=== PATIENT | female | born 1965 | race Caucasian/White ===

== ENCOUNTER → 2016-07-08 | Outpatient (CLI) | payer BC ==
--- NOTE | 2016-07-08 16:18 | REPMRS ---
Patient History The patient states she had a clinical breast exam in 07/2016. Family history of colorectal cancer in maternal grandmother at age 50 or over and breast cancer in paternal grandmother at age 50 or over. Digital Woman Screen Mammo: July 08, 2016 - Exam #: [id number] Bilateral CC and MLO view(s) were taken. Technologist: Andreia Yeboah Technologist Prior study comparison: July 10, 2015, digital woman screen mammo performed at [facility] to [facility]. July 10, 2014, digital woman screen mammo performed at [facility] to [facility]. FINDINGS: There are scattered fibroglandular densities. There has been no change in the appearance of the mammogram from the prior studies. There is a mild amount of residual fibroglandular tissue which is fairly symmetric. There is no interval development of dominant mass, architectural distortion, or clustered microcalcification suggestive of malignancy. ASSESSMENT: BI-RADS/ACR category 1 mammogram. Negative. Recommendation Routine screening mammogram in 1 year (for women over age 40). This mammogram was interpreted with the aid of an FDA-approved computer-aided dectection system. Electronically Signed By: Erick Chang MD 07/08/16 [id number]
== END ==
LOC: M WHC 15:08
PROVIDERS: ATTEND Nurse Practitioner Family
DX: Z12.31 Encounter for screening mammogram for malignant neoplasm of breast (principal); Z80.3 Family history of malignant neoplasm of breast

== ENCOUNTER → 2016-07-08 | Outpatient (REF) | payer BC | LOC: M SFHCWAGY 15:44 | PROVIDERS: ATTEND Nurse Practitioner Family | DX: Z12.4 Encounter for screening for malignant neoplasm of cervix (principal) ==

== ENCOUNTER → 2017-02-23 | Outpatient (CLI) | payer BC ==
[2017-02-23 13:31] LABS: MEAN CORPUSCULAR HEMOGLOBIN 30.9 pg (27.0-33.0); MEAN CORPUSCULAR HGB CONC 33.9 g/dl (32.0-36.5); MEAN CORPUSCULAR VOLUME 91.2 fl (80.0-96.0); RED CELL DISTRIBUTION WIDTH 11.8 % (11.5-14.5); WHITE BLOOD COUNT 5.2 K/mm3 (4.0-10.0)
[2017-02-23 13:38] LABS: VITAMIN B12 LEVEL 395 PG/ML
[2017-02-23 13:39] LABS: FOLATE 13.7 NG/ML
[2017-02-23 13:48] LABS: ALBUMIN 3.9 GM/DL (3.2-5.2); ALKALINE PHOSPHATASE 89 U/L (45-117); ALT/SGPT 17 U/L (12-78); ANION GAP 7 MEQ/L (8-16); AST/SGOT 13 U/L (15-37); BILIRUBIN,TOTAL 0.4 MG/DL (0.2-1.0); BLOOD UREA NITROGEN 10 MG/DL (7-18); CALCIUM LEVEL 9.2 MG/DL (8.5-10.1); CARBON DIOXIDE LEVEL 27 MEQ/L (21-32); CHLORIDE LEVEL 105 MEQ/L (98-107); CHOLESTEROL LEVEL 206 MG/DL (<200); CREATININE FOR GFR 0.83 MG/DL (0.55-1.02); GLOMERULAR FILTRATION RATE > 60.0 (>51); GLUCOSE, FASTING 85 MG/DL (70-105); POTASSIUM SERUM 4.5 MEQ/L (3.5-5.1); SODIUM LEVEL 139 MEQ/L (136-145); TOTAL PROTEIN 7.8 GM/DL (6.4-8.2); TRIGLYCERIDES LEVEL 95 MG/DL (<150)
== END ==
LOC: M SMT 08:15
PROVIDERS: ATTEND Nurse Practitioner Family
DX: Z13.0 Encounter for screening for diseases of the blood and blood-forming organs and certain disorders involving the immune mechanism (principal); Z13.1 Encounter for screening for diabetes mellitus; E66.09 Other obesity due to excess calories; E55.9 Vitamin D deficiency, unspecified; Z13.220 Encounter for screening for lipoid disorders

== ENCOUNTER → 2017-03-20 | Outpatient (CLI) | payer BC | LOC: M SMT 11:14 | PROVIDERS: ATTEND Advanced Practice Midwife | DX: N76.0 Acute vaginitis (principal) ==

== ENCOUNTER → 2017-07-04 | Outpatient (REF) | payer BC | LOC: M LAB REF 18:54 | DX: J02.9 Acute pharyngitis, unspecified (principal) | CPT/HCPCS: 87081 ==

== ENCOUNTER → 2017-07-10 | Outpatient (CLI) | payer BC | LOC: M WHC 15:11 | DX: Z12.31 Encounter for screening mammogram for malignant neoplasm of breast (principal) | CPT/HCPCS: 77067 ==

== ENCOUNTER 2017-10-11 08:46 | Outpatient (RCR) | payer BC | END 2017-10-30 | LOC: M OT 10-18 09:01 | DX: M77.8 Other enthesopathies, not elsewhere classified (principal) | CPT/HCPCS: 97110 ==

== ENCOUNTER → 2017-10-26 | Outpatient (CLI) | payer BC | LOC: M CARPUL 09:08 | DX: R06.02 Shortness of breath (principal) | CPT/HCPCS: 71046 ==

== ENCOUNTER 2017-11-01 09:04 | Outpatient (RCR) | payer BC | END 2017-11-30 | LOC: M OT 09:04 | DX: Z51.89 Encounter for other specified aftercare (principal); M77.8 Other enthesopathies, not elsewhere classified | CPT/HCPCS: 97110 ==

== ENCOUNTER → 2018-07-11 | Outpatient (CLI) | payer BC ==
--- NOTE | 2018-07-11 16:54 | REPMRS ---
Patient History The patient states she had a clinical breast exam in 07/2018. Family history of colorectal cancer at age 50 or over in maternal grandmother, breast cancer at age 50 or over in paternal grandmother. Took unspecified hormones for 6 months. Digital Woman Screen Mammo: July 11, 2018 - Exam #: [id number] Bilateral CC and MLO view(s) were taken. Technologist: Marianne Valerio, Technologist Prior study comparison: July 10, 2017, digital woman screen mammo performed at [facility]. July 08, 2016, digital woman screen mammo performed at [facility]. July 10, 2015, digital woman screen mammo performed at [facility]. FINDINGS: There are scattered fibroglandular densities. There has been no change in the appearance of the mammogram from the prior studies. There is a mild amount of scattered fibroglandular density which is fairly symmetric. There is no interval development of dominant mass, architectural distortion, or clustered microcalcification suggestive of malignancy. 3-D tomosynthesis shows no additional findings. Assessment: BI-RADS/ACR category 1 mammogram. Negative. Recommendation Routine screening mammogram of both breasts in 1 year (for women over age 40). This patient's Lifetime Breast Cancer RIsk is estimated at 18.9 %. This mammogram was interpreted with the aid of an FDA-approved computer-aided dectection system. Electronically Signed By: Dangelo Valadez MD 07/11/18 [id number]
== END ==
LOC: M WHC 15:09
PROVIDERS: ATTEND Nurse Practitioner Family
DX: Z12.31 Encounter for screening mammogram for malignant neoplasm of breast (principal); Z92.29 Personal history of other drug therapy; Z80.0 Family history of malignant neoplasm of digestive organs

== ENCOUNTER → 2018-07-27 | Outpatient (CLI) | payer BC ==
[2018-07-27 10:01] LABS: ALBUMIN 3.7 GM/DL (3.2-5.2); ALT/SGPT 38 U/L (12-78); BILIRUBIN,TOTAL 0.3 MG/DL (0.2-1.0); BLOOD UREA NITROGEN 12 MG/DL (7-18); CALCIUM LEVEL 8.9 MG/DL (8.5-10.1); CARBON DIOXIDE LEVEL 28 MEQ/L (21-32); CHLORIDE LEVEL 104 MEQ/L (98-107); CHOLESTEROL LEVEL 190 MG/DL (<200); CHOLESTEROL RISK RATIO 3.454 (<5); CREATININE FOR GFR 0.81 MG/DL (0.55-1.30); FREE T4 0.87 NG/DL (0.76-1.46); GLOMERULAR FILTRATION RATE > 60.0 (>51); GLUCOSE, FASTING 92 MG/DL (70-100); HDL CHOLESTEROL 55 MG/DL (>40); LDL CHOLESTEROL 115 MG/DL (<100); NON-HDL-C 135 MG/DL; POTASSIUM SERUM 4.8 MEQ/L (3.5-5.1); SODIUM LEVEL 139 MEQ/L (136-145); TOTAL PROTEIN 7.3 GM/DL (6.4-8.2); TRIGLYCERIDES LEVEL 100 MG/DL (<150)
[2018-07-27 10:09] LABS: TOTAL 25(OH) VITAMIN D 26.8 NG/ML (30.0-100.0)
== END ==
LOC: M LAB 08:51
PROVIDERS: ATTEND Nurse Practitioner Family
DX: Z13.220 Encounter for screening for lipoid disorders (principal); E66.09 Other obesity due to excess calories

== ENCOUNTER → 2019-05-17 | Outpatient (REF) | payer BC ==
[2019-05-17 18:08] LABS: HEMOGLOBIN 12.4 g/dl (12.0-15.5); MEAN CORPUSCULAR HEMOGLOBIN 30.6 pg (27.0-33.0); MEAN CORPUSCULAR HGB CONC 31.8 g/dl (32.0-36.5); MEAN CORPUSCULAR VOLUME 96.3 fl (80.0-96.0); PLATELET COUNT, AUTOMATED 300 10^3/uL (150-450); RED BLOOD COUNT 4.05 10^6/uL (4.00-5.40); WHITE BLOOD COUNT 6.8 10^3/uL (4.0-10.0)
[2019-05-17 18:18] LABS: ALT/SGPT 55 U/L (12-78); BILIRUBIN,TOTAL 0.2 MG/DL (0.2-1.0); BLOOD UREA NITROGEN 14 MG/DL (7-18); CALCIUM LEVEL 9.8 MG/DL (8.5-10.1); CARBON DIOXIDE LEVEL 31 MEQ/L (21-32); CHLORIDE LEVEL 105 MEQ/L (98-107); FERRITIN 39 NG/ML (8-252); FREE T4 0.86 NG/DL (0.76-1.46); GLOMERULAR FILTRATION RATE > 60.0 (>51); GLUCOSE, FASTING 119 MG/DL (70-100); POTASSIUM SERUM 3.8 MEQ/L (3.5-5.1); SODIUM LEVEL 141 MEQ/L (136-145); TOTAL PROTEIN 7.7 GM/DL (6.4-8.2)
[2019-05-17 18:21] LABS: TOTAL 25(OH) VITAMIN D 23.8 NG/ML (30.0-100.0)
== END ==
LOC: M SFHCPLAZ 14:51
PROVIDERS: ATTEND Nurse Practitioner Family
DX: G25.81 Restless legs syndrome (principal); E66.09 Other obesity due to excess calories; E55.9 Vitamin D deficiency, unspecified

== ENCOUNTER → 2019-05-20 | Outpatient (REF) | payer BC ==
[2019-05-20 19:23] LABS: HEMOGLOBIN A1c 5.5 %
== END ==
LOC: M LABDRWAD 16:19
PROVIDERS: ATTEND Surgery
DX: Z86.39 Personal history of other endocrine, nutritional and metabolic disease (principal)

== ENCOUNTER → 2019-07-12 | Outpatient (REF) | payer BC | LOC: M PLALAB 15:47 | PROVIDERS: ATTEND Nurse Practitioner Family | DX: Z12.4 Encounter for screening for malignant neoplasm of cervix (principal) | CPT/HCPCS: 87624; G0123 ==

== ENCOUNTER → 2019-07-12 | Outpatient (CLI) | payer BC ==
--- NOTE | 2019-07-12 17:53 | REPMRS ---
Patient History The patient states she had a clinical breast exam in 2019. Family history of colorectal cancer at age 50 or over in maternal grandmother, breast cancer at age 50 or over in paternal grandmother. Took unspecified hormones for 6 months. Digital Woman Screen Mammo: July 12, 2019 - Exam #: [id number] Bilateral CC and MLO view(s) were taken. Technologist: Safia Lake, Technologist Prior study comparison: July 11, 2018, bilateral digital woman screen mammo performed at [facility]. July 10, 2017, digital woman screen mammo performed at [facility]. July 08, 2016, digital woman screen mammo performed at [facility]. FINDINGS: The breast tissue is almost entirely fat. There has been no change in the appearance of the mammogram from the prior studies. There is no interval development of dominant mass, architectural distortion, or grouped microcalcification typical of malignancy. 3-D tomosynthesis shows no additional findings. Assessment: BI-RADS/ACR category 1 mammogram. Negative Mammogram. Recommendation Routine screening mammogram of both breasts in 1 year (for women over age 40). This patient's Lifetime Breast Cancer RIsk is estimated at 18.5 %. This mammogram was interpreted with the aid of an FDA-approved computer-aided dectection system. Electronically Signed By: Dangelo Valadez MD 07/12/19 [id number]
== END ==
LOC: M WHC 15:06
PROVIDERS: ATTEND Nurse Practitioner Family
DX: Z12.31 Encounter for screening mammogram for malignant neoplasm of breast (principal); Z80.0 Family history of malignant neoplasm of digestive organs; Z80.3 Family history of malignant neoplasm of breast

== ENCOUNTER → 2019-09-03 | Outpatient (CLI) | payer BC ==
[2019-09-03 14:17] LABS: BASO % 0.4 % (0.0-1.0); EOS # 0.2 10^3/uL (0.0-0.5); EOS % 3.6 % (0.0-3.0); HEMATOCRIT 38.6 % (36.0-47.0); HEMOGLOBIN 12.6 g/dl (12.0-15.5); LYMPH # 1.3 10^3/uL (1.5-5.0); LYMPH % 29.4 % (24.0-44.0); MEAN CORPUSCULAR HEMOGLOBIN 30.5 pg (27.0-33.0); MEAN CORPUSCULAR HGB CONC 32.6 g/dl (32.0-36.5); MEAN CORPUSCULAR VOLUME 93.5 fl (80.0-96.0); MONO # 0.4 10^3/uL (0.0-0.8); MONO % 8.2 % (0.0-5.0); NEUTROPHILS # 2.6 10^3/uL (1.5-8.5); PLATELET COUNT, AUTOMATED 214 10^3/uL (150-450); RED BLOOD COUNT 4.13 10^6/uL (4.00-5.40); WHITE BLOOD COUNT 4.5 10^3/uL (4.0-10.0)
[2019-09-03 14:25] LABS: HEMATOCRIT 38.6 % (36.0-47.0)
[2019-09-03 15:07] LABS: ALBUMIN 4.1 GM/DL (3.2-5.2); ALT/SGPT 66 U/L (12-78); BILIRUBIN,TOTAL 0.3 MG/DL (0.2-1.0); BLOOD UREA NITROGEN 8 MG/DL (7-18); CALCIUM LEVEL 9.6 MG/DL (8.5-10.1); CARBON DIOXIDE LEVEL 27 MEQ/L (21-32); CHLORIDE LEVEL 105 MEQ/L (98-107); CREATININE FOR GFR 0.74 MG/DL (0.55-1.30); FERRITIN 111 NG/ML (8-252); GLOMERULAR FILTRATION RATE > 60.0 (>51); GLUCOSE, FASTING 103 MG/DL (70-100); IRON (FE) 94 UG/DL (50-170); PERCENT SATURATION 29.6 % (13.2-45.0); PHOSPHORUS LEVEL 2.9 MG/DL (2.5-4.9); SODIUM LEVEL 137 MEQ/L (136-145); TOTAL 25(OH) VITAMIN D 46.8 NG/ML (30.0-100.0); TOTAL IRON BINDING CAPACITY 318 UG/DL (250-450); TOTAL PROTEIN 7.7 GM/DL (6.4-8.2); VITAMIN B12 LEVEL > 2000 PG/ML (247-911)
[2019-09-03 15:48] LABS: HEMOGLOBIN A1c 4.7 %
== END ==
LOC: M LAB 12:41
PROVIDERS: ATTEND Surgery
DX: K91.2 Postsurgical malabsorption, not elsewhere classified (principal); E55.9 Vitamin D deficiency, unspecified; Z98.84 Bariatric surgery status

== ENCOUNTER → 2020-02-20 | Outpatient (CLI) | payer BC ==
[2020-02-20 14:01] LABS: BASO % 0.2 % (0.0-1.0); EOS # 0.4 10^3/uL (0.0-0.5); EOS % 5.6 % (0.0-3.0); HEMATOCRIT 36.4 % (36.0-47.0); HEMOGLOBIN 12.1 g/dl (12.0-15.5); LYMPH # 1.4 10^3/uL (1.5-5.0); LYMPH % 22.3 % (24.0-44.0); MEAN CORPUSCULAR HEMOGLOBIN 31.3 pg (27.0-33.0); MEAN CORPUSCULAR HGB CONC 33.2 g/dl (32.0-36.5); MEAN CORPUSCULAR VOLUME 94.1 fl (80.0-96.0); MONO # 0.4 10^3/uL (0.0-0.8); MONO % 6.1 % (0.0-5.0); NEUTROPHILS # 4.1 10^3/uL (1.5-8.5); NEUTROPHILS % 65.6 % (36.0-66.0); PLATELET COUNT, AUTOMATED 211 10^3/uL (150-450); RED BLOOD COUNT 3.87 10^6/uL (4.00-5.40); WHITE BLOOD COUNT 6.3 10^3/uL (4.0-10.0)
[2020-02-20 14:05] LABS: HEMATOCRIT 36.4 % (36.0-47.0)
[2020-02-20 14:22] LABS: HEMOGLOBIN A1c 5.2 %
[2020-02-20 14:26] LABS: ALBUMIN 3.8 GM/DL (3.2-5.2); ALT/SGPT 33 U/L (12-78); BILIRUBIN,TOTAL 0.3 MG/DL (0.2-1.0); BLOOD UREA NITROGEN 22 MG/DL (7-18); CALCIUM LEVEL 9.3 MG/DL (8.5-10.1); CARBON DIOXIDE LEVEL 29 MEQ/L (21-32); CHLORIDE LEVEL 106 MEQ/L (98-107); CREATININE FOR GFR 0.68 MG/DL (0.55-1.30); FERRITIN 105 NG/ML (8-252); GLOMERULAR FILTRATION RATE > 60.0 (>51); GLUCOSE, FASTING 77 MG/DL (70-100); IRON (FE) 55 UG/DL (50-170); MAGNESIUM LEVEL 2.2 MG/DL (1.8-2.4); PERCENT SATURATION 17.5 % (13.2-45.0); POTASSIUM SERUM 4.5 MEQ/L (3.5-5.1); SODIUM LEVEL 139 MEQ/L (136-145); TOTAL IRON BINDING CAPACITY 314 UG/DL (250-450); TOTAL PROTEIN 7.6 GM/DL (6.4-8.2)
[2020-02-20 14:50] LABS: TOTAL 25(OH) VITAMIN D 45.5 NG/ML (30.0-100.0); VITAMIN B12 LEVEL 1485 PG/ML (247-911)
== END ==
LOC: M LAB 12:21
PROVIDERS: ATTEND Physician Assistant
DX: K91.2 Postsurgical malabsorption, not elsewhere classified (principal); E55.9 Vitamin D deficiency, unspecified; Z98.84 Bariatric surgery status; Z86.39 Personal history of other endocrine, nutritional and metabolic disease

== ENCOUNTER → 2020-03-13 | Outpatient (CLI) | payer BC ==
--- NOTE | 2020-04-02 11:10 | REP ---
GALLBLADDER ULTRASOUND CLINICAL: Right upper quadrant pain. TECHNIQUE: Real-time sin scale and color evaluation using curved array transducer. FINDINGS: Liver and visualized pancreas are normal in contour, size, and echogenicity without focal hepatic or pancreatic lesion identified. The gallbladder is normal and without gallstones, wall thickening, or pericholecystic fluid. No biliary duct dilatation is appreciated and the common bile duct measures 2.4 mm in diameter. The right kidney is normal in reniform shape and appearance without hydronephrosis and measures 10.4 x 5.3 x 3.8 cm. No ascites in the visualized right upper quadrant. IMPRESSION: Normal gallbladder and right upper quadrant ultrasound. MTDD
== END ==
LOC: M RAD 06:56
PROVIDERS: ATTEND Physician Assistant
DX: R10.11 Right upper quadrant pain (principal); Z98.84 Bariatric surgery status

== ENCOUNTER → 2020-06-30 | Outpatient (CLI) | payer BC ==
--- NOTE | 2020-07-01 15:36 | SLEEPCENT ---
DATE: 06/30/2020 ORDERED BY: Mary Gibson Nocturnal polysomnography was performed for evaluation of sleep physiology in this patient with a history of excessive somnolence and irregular breathing in sleep. There was 7 hours and 23 minutes of data reviewed. There was 395.5 minutes of sleep identified. Sleep latency was normal at 15 minutes. REM latency was prolonged at 251 minutes. Sleep architecture showed initial poor progression and some fragmentation. There were two REM cycles late in the study. Overall sleep efficiency was 90.4%. Electrocardiogram showed a sinus rhythm with an average heart rate of 65 beats per minute. Rate ranged 55-80. Electroencephalogram (EEG) showed some alpha intrusion in non-REM stages. No focal events were identified, and there were normal waveforms for wake and sleep. There were 111 respiratory events identified of 10 seconds in duration or greater for an apnea-hypopnea index of 16.8. The events were not exclusive to sleep stage nor to body posture, though they were much more frequent in the supine position. Arousals from respiratory events occurred 3.9 times per hour, and oxygen desaturations were seen below 90%. There was some activity seen in the limb leads. Limb movement arousal index was only 3.3. IMPRESSION: Obstructive sleep apnea syndrome (G47.33). Apnea-hypopnea index 16.8. RECOMMENDATION: The patient should be encouraged to return to the sleep disorder center for continuous positive airway pressure (CPAP) titration. In the interim, alcohol and sedative avoidance should be practiced and caution exercised during the operation of motor vehicles.
== END ==
LOC: M SLEEP 20:00
PROVIDERS: ATTEND Nurse Practitioner Family
DX: G47.33 Obstructive sleep apnea (adult) (pediatric) (principal)

== ENCOUNTER → 2020-08-19 | Outpatient (CLI) | payer BC | LOC: M LAB 15:35 | PROVIDERS: ATTEND Surgery | DX: K91.2 Postsurgical malabsorption, not elsewhere classified (principal); E55.9 Vitamin D deficiency, unspecified; Z86.39 Personal history of other endocrine, nutritional and metabolic disease; Z98.84 Bariatric surgery status ==

== ENCOUNTER → 2020-08-19 | Outpatient (CLI) | payer BC ==
[2020-08-19 17:53] LABS: HEMATOCRIT 33.1 % (36.0-47.0)
[2020-08-19 17:54] LABS: BASO % 0.6 % (0.0-1.0); EOS # 0.1 10^3/uL (0.0-0.5); EOS % 2.3 % (0.0-3.0); HEMOGLOBIN 10.6 g/dl (12.0-15.5); LYMPH # 1.5 10^3/uL (1.5-5.0); LYMPH % 29.6 % (24.0-44.0); MEAN CORPUSCULAR HEMOGLOBIN 30.5 pg (27.0-33.0); MEAN CORPUSCULAR HGB CONC 32.1 g/dl (32.0-36.5); MEAN CORPUSCULAR VOLUME 94.8 fl (80.0-96.0); MONO # 0.4 10^3/uL (0.0-0.8); MONO % 6.8 % (2.0-8.0); NEUTROPHILS # 3.1 10^3/uL (1.5-8.5); NEUTROPHILS % 60.3 % (36.0-66.0); PLATELET COUNT, AUTOMATED 230 10^3/uL (150-450); RED BLOOD COUNT 3.48 10^6/uL (4.00-5.40); WHITE BLOOD COUNT 5.1 10^3/uL (4.0-10.0)
[2020-08-19 18:16] LABS: ALT/SGPT 53 U/L (12-78); BILIRUBIN,TOTAL 0.2 MG/DL (0.2-1.0); BLOOD UREA NITROGEN 21 MG/DL (7-18); CALCIUM LEVEL 9.6 MG/DL (8.5-10.1); CARBON DIOXIDE LEVEL 32 MEQ/L (21-32); CHLORIDE LEVEL 103 MEQ/L (98-107); CREATININE FOR GFR 0.74 MG/DL (0.55-1.30); FERRITIN 114 NG/ML (8-252); GLOMERULAR FILTRATION RATE > 60.0 (>51); GLUCOSE, FASTING 64 MG/DL (70-100); IRON (FE) 72 UG/DL (50-170); MAGNESIUM LEVEL 2.1 MG/DL (1.8-2.4); PERCENT SATURATION 19.6 % (13.2-45.0); PHOSPHORUS LEVEL 4.1 MG/DL (2.5-4.9); POTASSIUM SERUM 4.1 MEQ/L (3.5-5.1); SODIUM LEVEL 140 MEQ/L (136-145); TOTAL IRON BINDING CAPACITY 367 UG/DL (250-450); TOTAL PROTEIN 7.7 GM/DL (6.4-8.2)
[2020-08-19 18:23] LABS: VITAMIN B12 LEVEL 1259 PG/ML (247-911)
[2020-08-19 18:46] LABS: HEMOGLOBIN A1c 5.2 %
== END ==
LOC: M LAB 16:13
PROVIDERS: ATTEND Physician Assistant
DX: K91.2 Postsurgical malabsorption, not elsewhere classified (principal); E55.9 Vitamin D deficiency, unspecified; Z98.84 Bariatric surgery status; Z86.39 Personal history of other endocrine, nutritional and metabolic disease

== ENCOUNTER → 2020-08-27 | Outpatient (CLI) | payer BC ==
--- NOTE | 2020-08-27 12:43 | REPMRS ---
Patient History The patient states she had a clinical breast exam in 2020. Family history of colorectal cancer at age 50 or over in maternal grandmother, breast cancer at age 50 or over in paternal grandmother. Took unspecified hormones for 6 months. Digital Woman Screen Mammo: August 27, 2020 - Exam #: [id number] Bilateral CC and MLO view(s) were taken. Technologist: Safia Lake, Technologist Prior study comparison: July 12, 2019, bilateral digital woman screen mammo performed at [facility]. July 11, 2018, bilateral digital woman screen mammo performed at [facility]. July 10, 2017, digital woman screen mammo performed at [facility]. FINDINGS: There are scattered fibroglandular densities. The Volpara volumetric breast density category is:B. There has been no change in the appearance of the mammogram from the prior studies. There is a mild amount of scattered fibroglandular density which is fairly symmetric. There is no interval development of dominant mass, architectural distortion, or grouped microcalcification suggestive of malignancy. 3-D tomosynthesis shows no additional findings. Assessment: BI-RADS/ACR category 1 mammogram. Negative Mammogram. Recommendation Routine screening mammogram of both breasts in 1 year (for women over age 40). This patient's [facility] Lifetime Breast Cancer Risk is estimated at 18.1 %. This mammogram was interpreted with the aid of an FDA-approved computer-aided dectection system. Electronically Signed By: Dangelo Valadez MD 08/27/20 [id number]
== END ==
LOC: M WHC 10:34
PROVIDERS: ATTEND Nurse Practitioner Family
DX: Z12.31 Encounter for screening mammogram for malignant neoplasm of breast (principal)

== ENCOUNTER → 2021-02-04 | Outpatient (CLI) | payer BC ==
--- NOTE | 2021-02-04 19:53 | REPVR ---
PROCEDURE INFORMATION: Exam: MR Cervical Spine Without Contrast Exam date and time: 02/04/2021 5:55 PM Age: 55 years old Clinical indication: Neck pain; Additional info: Oth disc degeneration, R/O stenosis vs hnp TECHNIQUE: Imaging protocol: Multiplanar magnetic resonance images of the cervical spine without contrast. COMPARISON: CR Chest, 2 view PA, Lat 10/26/2017 9:28 AM FINDINGS: Examination is motion limited. Nonspecific straightening. Mild retrolisthesis of C5 on C6. Vertebral body heights are preserved. Multilevel disc desiccation disc space narrowing. There is degenerative endplate signal. No evidence of discitis/osteomyelitis. No abnormal cord signal or cord expansion. No epidural fluid collection. The C2-C3: No significant central or foraminal stenosis. C3-C4: Minimal disc osteophyte complex without significant central or foraminal stenosis. C4-C5: Mild disc osteophyte complex with right greater than left uncinate spurring. No significant central canal stenosis. There is moderate right foraminal stenosis. C5-C6: [id number] disc osteophyte complex with bilateral uncinate spurring. There is mild central canal stenosis, mild right foraminal stenosis and severe left foraminal stenosis. C6-C7: No significant central or foraminal stenosis. C7-T1: No significant central or foraminal stenosis. IMPRESSION: 1. Patient motion. 2. No acute abnormality involving the cervical spine. 3. Degenerative change most prominent at C5-C6 where there is mild central canal stenosis and severe left foraminal stenosis. Electronically signed by: Jonas Devries On 02/04/2021 19:53:04 PM
== END ==
LOC: M RAD 16:11
PROVIDERS: ATTEND Physician Assistant
DX: M50.322 Other cervical disc degeneration at C5-C6 level (principal); M48.061 Spinal stenosis, lumbar region without neurogenic claudication

== ENCOUNTER → 2021-03-02 | Outpatient (RCR) | payer BC | LOC: M PT 02-01 09:29 | PROVIDERS: ATTEND Physician Assistant | DX: M50.30 Other cervical disc degeneration, unspecified cervical region (principal); M19.012 Primary osteoarthritis, left shoulder ==

== ENCOUNTER 2021-03-04 07:03 | Outpatient (RCR) | payer BC | END 2021-04-01 | LOC: M PT 07:03 | PROVIDERS: ATTEND Physician Assistant | DX: M50.30 Other cervical disc degeneration, unspecified cervical region (principal); M19.012 Primary osteoarthritis, left shoulder ==

== ENCOUNTER → 2021-04-06 | Outpatient (REF) ==
[2021-04-06 11:33] LABS: RSV AMPLIFICATION NEGATIVE (NEGATIVE)
== END ==
LOC: M EMP 07:50
PROVIDERS: ATTEND Family Medicine
DX: Z20.828 Contact with and (suspected) exposure to other viral communicable diseases (principal)

== ENCOUNTER → 2021-04-07 | Outpatient (CLI) | payer BC ==
--- NOTE | 2021-04-07 13:32 | REP ---
INDICATION: OTHER INJURY OF UNSPECIFIED BODY REGION, INITIAL ENCOUNTER COMPARISON: None. TECHNIQUE: AP, lateral, bilateral oblique views right foot. FINDINGS: The osseous structures and joint spaces are intact and essentially age-appropriate. There is no evidence for acute osseous injury or abnormality related to recent trauma. Surrounding soft tissues are unremarkable. No subcutaneous emphysema or radiodense foreign body. IMPRESSION: Essentially normal age-appropriate radiographic evaluation of the right foot. No obvious osseous abnormality, subcutaneous emphysema or foreign body. <Electronically signed by Tyler Bryant > 04/07/21 [id number]
[2021-04-07 14:25] LABS: BASO % 0.3 % (0.0-1.0); EOS % 0.3 % (0.0-3.0); HEMATOCRIT 36.9 % (36.0-47.0); HEMOGLOBIN 12.3 g/dl (12.0-15.5); LYMPH # 1.2 10^3/uL (1.5-5.0); MEAN CORPUSCULAR HEMOGLOBIN 31.2 pg (27.0-33.0); MEAN CORPUSCULAR HGB CONC 33.3 g/dl (32.0-36.5); MEAN CORPUSCULAR VOLUME 93.7 fl (80.0-96.0); MONO # 0.6 10^3/uL (0.0-0.8); MONO % 6.2 % (2.0-8.0); NEUTROPHILS # 7.5 10^3/uL (1.5-8.5); NEUTROPHILS % 79.9 % (36.0-66.0); PLATELET COUNT, AUTOMATED 221 10^3/uL (150-450); RED BLOOD COUNT 3.94 10^6/uL (4.00-5.40); WHITE BLOOD COUNT 9.4 10^3/uL (4.0-10.0)
[2021-04-07 14:31] LABS: ALT/SGPT 46 U/L (12-78); BILIRUBIN,TOTAL 0.3 MG/DL (0.2-1.0); BLOOD UREA NITROGEN 10 MG/DL (7-18); CALCIUM LEVEL 9.9 MG/DL (8.5-10.1); CARBON DIOXIDE LEVEL 27 MEQ/L (21-32); CHLORIDE LEVEL 105 MEQ/L (98-107); CREATININE FOR GFR 0.86 MG/DL (0.55-1.30); GLOMERULAR FILTRATION RATE > 60.0 (>51); GLUCOSE, FASTING 91 MG/DL (70-100); POTASSIUM SERUM 4.2 MEQ/L (3.5-5.1); SODIUM LEVEL 136 MEQ/L (136-145); TOTAL PROTEIN 8.2 GM/DL (6.4-8.2)
== END ==
LOC: M PLALAB 12:35
PROVIDERS: ATTEND Nurse Practitioner Adult Health
DX: T14.8XXA Other injury of unspecified body region, initial encounter (principal); R50.9 Fever, unspecified

== ENCOUNTER → 2021-05-04 | Outpatient (REF) | LOC: M EMP 12:45 | PROVIDERS: ATTEND Family Medicine | DX: Z20.822 Contact with and (suspected) exposure to COVID-19 (principal) ==

== ENCOUNTER → 2021-05-10 | Outpatient (REF) | LOC: M EMP 09:11 | PROVIDERS: ATTEND Family Medicine | DX: Z20.822 Contact with and (suspected) exposure to COVID-19 (principal) ==

== ENCOUNTER → 2021-06-03 | Outpatient (REF) ==
[2021-06-03 09:17] LABS: RSV AMPLIFICATION NEGATIVE (NEGATIVE)
== END ==
LOC: M EMP 08:22
PROVIDERS: ATTEND Family Medicine
DX: Z20.822 Contact with and (suspected) exposure to COVID-19 (principal)

== ENCOUNTER → 2021-08-31 | Outpatient (REF) | payer BC | LOC: M PLALAB 09:02 | PROVIDERS: ATTEND Specialist | DX: Z12.4 Encounter for screening for malignant neoplasm of cervix (principal) | CPT/HCPCS: 87624; G0123 ==

== ENCOUNTER → 2021-08-31 | Outpatient (CLI) | payer BC | LOC: M WHC 08:56 | PROVIDERS: ATTEND Specialist | DX: Z12.31 Encounter for screening mammogram for malignant neoplasm of breast (principal) ==

== ENCOUNTER → 2022-05-18 | Outpatient (CLI) | payer BC | LOC: M LAB 15:12 | PROVIDERS: ATTEND Nurse Practitioner Adult Health | DX: Z13.29 Encounter for screening for other suspected endocrine disorder (principal) ==

== ENCOUNTER → 2022-05-18 | Outpatient (CLI) | payer BC ==
[2022-05-18 16:11] LABS: HEMATOCRIT 36.2 % (36.0-47.0)
[2022-05-18 16:12] LABS: HEMATOCRIT 36.3 % (36.0-47.0); HEMOGLOBIN 11.7 g/dl (12.0-15.5); MEAN CORPUSCULAR HEMOGLOBIN 30.9 pg (27.0-33.0); MEAN CORPUSCULAR HGB CONC 32.2 g/dl (32.0-36.5); MEAN CORPUSCULAR VOLUME 95.8 fl (80.0-96.0); PLATELET COUNT, AUTOMATED 277 10^3/uL (150-450); RED BLOOD COUNT 3.79 10^6/uL (4.00-5.40); WHITE BLOOD COUNT 5.4 10^3/uL (4.0-10.0)
[2022-05-18 17:26] LABS: ALBUMIN 4.3 G/DL (3.2-5.2); ALT/SGPT 36 U/L (7.0-40); BILIRUBIN,TOTAL 0.3 MG/DL (0.3-1.2); BLOOD UREA NITROGEN 20 MG/DL (9-23); CALCIUM LEVEL 9.7 MG/DL (8.5-10.1); CARBON DIOXIDE LEVEL 27 MMOL/L (20-31); CHLORIDE LEVEL 100 MMOL/L (98-107); FERRITIN 59.3 NG/ML (7.3-270.7); GLOMERULAR FILTRATION RATE > 60.0 (>51); GLUCOSE, FASTING 86 MG/DL (60-100); IRON (FE) 112 UG/DL (50-170); PERCENT SATURATION 32.3 % (13.2-45.0); POTASSIUM SERUM 4.4 MMOL/L (3.5-5.1); SODIUM LEVEL 137 MMOL/L (136-145); TOTAL IRON BINDING CAPACITY 347 UG/DL (250-425); TOTAL PROTEIN 7.6 G/DL (5.7-8.2); VITAMIN B12 LEVEL 1745 PG/ML (211-911)
[2022-05-18 18:42] LABS: FOLATE > 24.0 NG/ML (>5.4)
== END ==
LOC: M LAB 15:11
PROVIDERS: ATTEND Nurse Practitioner Family
DX: E55.9 Vitamin D deficiency, unspecified (principal); D53.8 Other specified nutritional anemias; Z98.84 Bariatric surgery status

== ENCOUNTER → 2022-05-29 | Outpatient (REF) ==
[2022-05-29 13:21] LABS: RSV AMPLIFICATION NEGATIVE (NEGATIVE)
== END ==
LOC: M LABSMTC 11:06
PROVIDERS: ATTEND Family Medicine
DX: Z20.822 Contact with and (suspected) exposure to COVID-19 (principal)

== ENCOUNTER → 2022-12-21 | Outpatient (REF) | LOC: M EMP 10:39 | PROVIDERS: ATTEND Family Medicine | DX: Z20.822 Contact with and (suspected) exposure to COVID-19 (principal) ==

== ENCOUNTER → 2023-03-07 | Outpatient (REF) | LOC: M EMP 07:53 | PROVIDERS: ATTEND Family Medicine | DX: Z11.52 Encounter for screening for COVID-19 (principal) ==

== ENCOUNTER → 2023-05-06 | Outpatient (CLI) | payer BC ==
[2023-05-06 09:11] LABS: HEMATOCRIT 34.7 % (36.0-47.0); HEMOGLOBIN 11.5 g/dl (12.0-15.5); MEAN CORPUSCULAR HEMOGLOBIN 31.4 pg (27.0-33.0); MEAN CORPUSCULAR HGB CONC 33.1 g/dl (32.0-36.5); MEAN CORPUSCULAR VOLUME 94.8 fl (80.0-96.0); PLATELET COUNT, AUTOMATED 236 10^3/uL (150-450); RED BLOOD COUNT 3.66 10^6/uL (4.00-5.40); WHITE BLOOD COUNT 4.4 10^3/uL (4.0-10.0)
[2023-05-06 09:40] LABS: TOTAL IRON BINDING CAPACITY 351 UG/DL (250-425)
[2023-05-06 09:41] LABS: IRON (FE) 102 UG/DL (50-170); PERCENT SATURATION 29.1 % (13.2-45.0)
[2023-05-06 09:45] LABS: ALBUMIN 4.1 G/DL (3.2-5.2); ALKALINE PHOSPHATASE 81 U/L (46-116); ALT/SGPT 29 U/L (7.0-40); AST/SGOT 19 U/L (<34); BILIRUBIN,TOTAL 0.3 MG/DL (0.3-1.2); BLOOD UREA NITROGEN 19 MG/DL (9-23); CALCIUM LEVEL 9.4 MG/DL (8.5-10.1); CARBON DIOXIDE LEVEL 28 MMOL/L (20-31); CHLORIDE LEVEL 104 MMOL/L (98-107); CHOLESTEROL LEVEL 197 MG/DL (<200); CHOLESTEROL RISK RATIO 2.68 (<5); CREATININE FOR GFR 0.73 MG/DL (0.55-1.30); FERRITIN 49.6 NG/ML (7.3-270.7); FREE T4 1.13 NG/DL (0.89-1.76); GLOMERULAR FILTRATION RATE > 60.0 (>51); GLUCOSE, FASTING 91 MG/DL (60-100); HDL CHOLESTEROL 73.5 MG/DL (>40); LDL CHOLESTEROL 110.9 MG/DL (<100); NON-HDL-C 123.5 MG/DL; POTASSIUM SERUM 4.4 MMOL/L (3.5-5.1); SODIUM LEVEL 138 MMOL/L (136-145); THYROID STIMULATING HORMONE 1.881 uIU/ML (0.55-4.78); TOTAL 25(OH) VITAMIN D 26.4 NG/ML (20.0-100.0); TOTAL PROTEIN 7.2 G/DL (5.7-8.2); TRIGLYCERIDES LEVEL 63 MG/DL (<150); VITAMIN B12 LEVEL 946 PG/ML (211-911)
== END ==
LOC: M LAB 08:32
PROVIDERS: ATTEND Nurse Practitioner Adult Health
DX: Z00.00 Encounter for general adult medical examination without abnormal findings (principal); E55.9 Vitamin D deficiency, unspecified; Z98.84 Bariatric surgery status; D53.9 Nutritional anemia, unspecified

== ENCOUNTER → 2023-08-08 | Outpatient (REF) | LOC: M EMP 07:47 | PROVIDERS: ATTEND Family Medicine | DX: Z20.822 Contact with and (suspected) exposure to COVID-19 (principal) ==

== ENCOUNTER → 2024-02-08 | Outpatient (CLI) | payer BC | LOC: M WHC 07:19 | PROVIDERS: ATTEND Nurse Practitioner Adult Health | DX: Z12.31 Encounter for screening mammogram for malignant neoplasm of breast (principal); R92.313 Mammographic fatty tissue density, bilateral breasts ==

== ENCOUNTER → 2024-02-08 | Outpatient (CLI) | payer BC ==
[2024-02-08 11:38] LABS: HEMOGLOBIN 12.1 g/dl (12.0-15.5); MEAN CORPUSCULAR HEMOGLOBIN 31.6 pg (27.0-33.0); MEAN CORPUSCULAR HGB CONC 32.7 g/dl (32.0-36.5); MEAN CORPUSCULAR VOLUME 96.6 fl (80.0-96.0); PLATELET COUNT, AUTOMATED 242 10^3/uL (150-450); RED BLOOD COUNT 3.83 10^6/uL (4.00-5.40); WHITE BLOOD COUNT 4.4 10^3/uL (4.0-10.0)
[2024-02-08 11:40] LABS: HEMATOCRIT 36.5 % (36.0-47.0)
[2024-02-08 11:43] LABS: ALBUMIN 4.4 G/DL (3.2-5.2); ALKALINE PHOSPHATASE 89 U/L (46-116); ALT/SGPT 36 U/L (7.0-40); AST/SGOT 23 U/L (<34); BILIRUBIN,TOTAL 0.4 MG/DL (0.3-1.2); BLOOD UREA NITROGEN 24 MG/DL (9-23); CARBON DIOXIDE LEVEL 29 MMOL/L (20-31); CHLORIDE LEVEL 107 MMOL/L (98-107); CREATININE FOR GFR 0.66 MG/DL (0.55-1.30); GLOMERULAR FILTRATION RATE > 60.0 (>51); GLUCOSE, FASTING 83 MG/DL (60-100); IRON (FE) 114 UG/DL (50-170); PERCENT SATURATION 28.6 % (13.2-45.0); POTASSIUM SERUM 4.5 MMOL/L (3.5-5.1); SODIUM LEVEL 139 MMOL/L (136-145); TOTAL IRON BINDING CAPACITY 399 UG/DL (250-425); TOTAL PROTEIN 7.8 G/DL (5.7-8.2)
[2024-02-08 11:45] LABS: FERRITIN 32.7 NG/ML (7.3-270.7); FREE T4 1.29 NG/DL (0.89-1.76); THYROID STIMULATING HORMONE 2.618 uIU/ML (0.55-4.78)
== END ==
LOC: M PLALAB 07:45
PROVIDERS: ATTEND Nurse Practitioner Adult Health
DX: Z00.00 Encounter for general adult medical examination without abnormal findings (principal); E55.9 Vitamin D deficiency, unspecified; Z13.29 Encounter for screening for other suspected endocrine disorder; Z98.84 Bariatric surgery status

== ENCOUNTER → 2024-02-08 | Outpatient (REF) | LOC: M EMP 11:42 | PROVIDERS: ATTEND Family Medicine | DX: Z11.52 Encounter for screening for COVID-19 (principal) ==

== ENCOUNTER → 2024-04-10 | Outpatient (CLI) | payer BC | LOC: M RAD 11:05 | PROVIDERS: ATTEND Nurse Practitioner Adult Health | DX: R22.1 Localized swelling, mass and lump, neck (principal) ==

== ENCOUNTER → 2024-05-14 | Outpatient (REF) | LOC: M EMP 12:55 | PROVIDERS: ATTEND Family Medicine | DX: Z11.52 Encounter for screening for COVID-19 (principal) ==

== ENCOUNTER → 2024-06-05 | Outpatient (CLI) | payer BC | LOC: M RAD 08:53 | PROVIDERS: ATTEND Nurse Practitioner Adult Health | DX: Z12.2 Encounter for screening for malignant neoplasm of respiratory organs (principal); Z87.891 Personal history of nicotine dependence ==

== ENCOUNTER → 2024-06-24 | Outpatient (REF) | payer BC | LOC: M SFHCDERM 17:30 | PROVIDERS: ATTEND Physician Assistant | DX: D48.9 Neoplasm of uncertain behavior, unspecified (principal) ==